=== PATIENT | male | born 1975 | race Caucasian/White ===

== ENCOUNTER 2017-01-15 19:28 | Emergency (ER) | payer SELFPAY ==
[~2017-01-15] VITALS: Ht 188 cm; Wt 86.2 kg
[2017-01-15 19:56] VITALS: BP 155/90
--- NOTE | 2017-01-15 20:25 | PHYS DOC ---
Past Medical History Past Medical History: No Pertinent History Past Surgical History: Other Additional Past Surgical Histo: R hand Alcohol Use: Occasionally Drug Use: Marijuana Adult General Chief Complaint Chief Complaint: LACERATION/AVULSION [facility] HPI Patient is a 41 year old male presents to the emergency department stating he has a laceration underneath his right axilla patient states that he was unloading something out of his truck is unsure when he cut his underarm with. He does state that this was an accident however. He is unsure when his last tetanus immunization occurred. He denies any numbness or tingling down to his lower extremity of his right hand. Peripheral pulses 2+ cap refill brisk less than 2 seconds. No bleeding is currently noted. Laceration appears to be approximately 3 cm in length. Review of Systems Review of Systems Constitutional: Denies fever or chills [] Eyes: Denies change in visual acuity, redness, or eye pain [] HENT: Denies nasal congestion or sore throat [] Respiratory: Denies cough or shortness of breath [] Cardiovascular: No additional information not addressed in HPI [] GI: Denies abdominal pain, nausea, vomiting, bloody stools or diarrhea [] : Denies dysuria or hematuria [] Musculoskeletal: Denies back pain or joint pain [] Integument: Denies rash or skin lesions. Laceration under her right axilla. Neurologic: Denies headache, focal weakness or sensory changes [] Endocrine: Denies polyuria or polydipsia [] Current Medications Current Medications Current Medications Medications (Trade) Dose Ordered Sig/Keya Start Time Stop Time Status Last Admin Dose Admin Diphtheria/ Tetanus/Acell Pertussis (Boostrix) 0.5 ml ONCE ONCE 01/15/17 20:30 01/15/17 20:31 DC 01/15/17 20:50 0.5 ML Lidocaine/Sodium Bicarbonate (Buffered Lidocaine 1%) 20 ml 1X ONCE 01/15/17 20:30 01/15/17 20:31 DC Allergies Allergies Allergies Coded Allergies Type Severity Reaction Last Updated Verified No Known Drug Allergies 01/15/17 No Physical Exam Physical Exam Constitutional: Well developed, well nourished, no acute distress, non-toxic appearance. [] HENT: Normocephalic, atraumatic, bilateral external ears normal, oropharynx moist, no oral exudates, nose normal. [] Eyes: PERRLA, EOMI, conjunctiva normal, no discharge. [] Neck: Normal range of motion, no tenderness, supple, no stridor. [] Cardiovascular:Heart rate regular rhythm Lungs & Thorax: Bilateral breath sounds clear to auscultation [] Skin: Warm, dry, no erythema, no rash. Patient with a laceration approximately 3 cm in length. No drainage or discharge noted from the site. The area does appear to be gaping. Back: No tenderness Extremities: No tenderness, no cyanosis, no clubbing, ROM intact, no edema. [] Neurologic: Alert and oriented X 3, normal motor function, normal sensory function, no focal deficits noted. [] Psychologic: Affect normal, judgement normal, mood normal. [] Current Patient Data Vital Signs Vital Signs Date Time Temp Pulse Resp B/P (MAP) Pulse Ox O2 Delivery O2 Flow Rate FiO2 01/15/17 19:56 98.4 74 18 96 Room Air 98.4 EKG EKG [] Radiology/Procedures Radiology/Procedures [] Course & Med Decision Making Course & Med Decision Making Pertinent Labs and Imaging studies reviewed. (See chart for details) Recommended sutures on the next 7-10 days. Signs symptoms to return back to emergency department as been provided. Patient was provided with signs and symptoms of infection: Redness, warmth, tenderness or any yellow/greenish drainage of a come from the site physician occur follow-up the primary care physician immediately. Patient was also recommended to use Tylenol or ibuprofen for pain and discomfort. Ice packs on 20 minutes off 20 minutes several times a day. Patient agrees with discharge instructions, treatment regimens and follow- up recommendations. Signs and symptoms to return back to emergency department as been provided. All questions and concerns been answered at patient's bedside. [] Dragon Disclaimer Dragon Disclaimer This electronic medical record was generated, in whole or in part, using a voice recognition dictation system. Departure Departure Impression: Primary Impression: Laceration Disposition: 01 HOME, SELF-CARE Condition: STABLE Patient Instructions: Laceration Care, Adult, Sutured Wound Care, [id number] Additional Instructions: Activity as tolerated. Tylenol or ibuprofen for pain and discomfort. Ice packs on 20 minutes off 20 minutes several times a day. Clean the site with soap and water and apply antibiotic ointment twice a day. Watch for signs and symptoms of infection: Redness, warmth, tenderness or any yellow/greenish drainage of a come from the site. Sutures out in the next 7-10 days. Return back to emergency prior signs symptoms of become worse. Follow-up with primary care physician in the next 7-10 days. Scripts Cephalexin (CEPHALEXIN) 500 Mg Tablet 1 TAB PO BID, #20 TAB Prov: TJ PEARSON APRN 01/15/17 Laceration/Wound Repair Laceration/Wound Repair : Wound Location: upper extremity Wound's Depth, Shape: superficial Wound Length (cm): 3 Wound Explored: clean Irrigated w/ Saline (ccs): 40 Betadine Prep?: Yes Anesthesia: 1% Lidocaine Volume Anesthetic (ccs): 6 Wound Debrided: minimal Wound Repaired With: sutures Suture Size/Type: 4:0, nylon Number of Sutures: 8 Progress Site was irrigated with approximately 40 mL of normal saline. 1% buffered lidocaine 8 mL injected into the area. Site was cleaned with Betadine. Sterile drapes was applied no foreign bodies noted in the area. Area was sutured closed with 8 interrupted sutures of 4-0 nylon. Patient tolerated the procedure well. TJ PEARSON APRN Jan 15, 2017 20:25
[2017-01-15] MEDS ORDERED: DIPHTH,PERTUSS(ACELL),TET TOX 0.5 ML DISP.SYRIN. VAX IM ONE (20:30)
[2017-01-15] MEDS ORDERED: LIDOCAINE 1% / SOD BICARB 8.4% 20 ML VIAL. IJ ONE (20:30)
[2017-01-15] MEDS ORDERED: CEPH500T PO (21:02)
== END 2017-01-15 21:45 | disposition home or self-care (01) ==
LOC: ER 19:28
DX: S41.111A Laceration without foreign body of right upper arm, initial encounter (principal); W26.9XXA Contact with unspecified sharp object(s), initial encounter; Y93.89 Activity, other specified; Y92.89 Other specified places as the place of occurrence of the external cause; Y99.8 Other external cause status
CPT/HCPCS: 12002; 90471; 90715; 99283-25

== ENCOUNTER 2021-06-28 18:01 | Emergency (ER) | payer SELFPAY ==
[~2021-06-28] VITALS: Ht 188 cm; Wt 96.7 kg
[2021-06-28 18:01] VITALS: BP 138/78
[~2021-06-28 18:01] MED LIST: CEPH500T PO
[2021-06-28] MEDS ORDERED: FAMO20TA5 PO (18:50)
[2021-06-28] MEDS ORDERED: PRED-220 PO (18:50)
[2021-06-28] MEDS ORDERED: HYDR25TA PO (18:50)
--- NOTE | 2021-06-28 18:51 | PHYS DOC ---
Past Medical History Past Medical History: No Pertinent History Past Surgical History: Other Additional Past Surgical Histo: R hand Smoking Status: Current Every Day Smoker Alcohol Use: Occasionally Drug Use: Marijuana General Adult EDM: Chief Complaint: ITCHING HPI: HPI: Patient is a 46 year old male who presents the ED today with an itchy rash that began 1 week ago after doing yard work. Patient states he has tried Benadryl as well as calamine lotion with no improvement. He said the rash has spread to bilateral upper extremity neck as well as face. Review of Systems: Review of Systems: Constitutional: Denies fever or chills. [] Eyes: Denies change in visual acuity. [] Musculoskeletal: Denies back pain or joint pain. [] Integument: Reports rash Neurologic: Denies headache, focal weakness or sensory changes. [] ] Psychiatric: Denies depression or anxiety. [] Heart Score: C/O Chest Pain: N/A Risk Factors: Risk Factors: DM, Current or recent (<one month) smoker, HTN, HLP, family history of CAD, obesity. Risk Scores: Score 0 - 3: 2.5% MACE over next 6 weeks - Discharge Home Score 4 - 6: 20.3% MACE over next 6 weeks - Admit for Clinical Observation Score 7 - 10: 72.7% MACE over next 6 weeks - Early Invasive Strategies Allergies: Allergies: Allergies Coded Allergies Type Severity Reaction Last Updated Verified No Known Drug Allergies 06/28/21 No Physical Exam: PE: Constitutional: Well developed, well nourished, no acute distress, non-toxic appearance. [] Eyes: PERRLA, EOMI, conjunctiva normal, no discharge. [] Skin: Mild amount of erythematous papular rash on bilateral upper extremities worse on the right forearm, the right forearm skin is dry the patient has applied calamine lotion to the area making it even more dry, similar rash noted on patient's face with trace amount on bilateral lower eyelids, there is no orbital involvement. Back: No tenderness, no CVA tenderness. [] Extremities: No tenderness, no cyanosis, no clubbing, ROM intact, no edema. [] Neurologic: Alert and oriented X 3, normal motor function, normal sensory function, no focal deficits noted. [] Psychologic: Affect normal, judgement normal, mood normal. [] Current Patient Data: Vital Signs: Vital Signs Date Time Temp Pulse Resp B/P (MAP) Pulse Ox O2 Delivery O2 Flow Rate FiO2 06/28/21 18:01 98.3 93 18 138/78 (98) 99 98.3 EKG: EKG: [] Radiology/Procedures: Radiology/Procedures: [] Course & Med Decision Making: Course & Med Decision Making Pertinent Labs and Imaging studies reviewed. (See chart for details) This a 46-year-old male patient presented to the ED today with contact dermatitis rash that began a week ago after doing yard work. Patient's rash is on bilateral upper extremities, neck, face. Discharged on tapered dose of prednisone, hydroxyzine and Pepcid. Follow-up with PCP in 2 weeks. Provided return precautions. Samanthaon Disclaimer: Esau Disclaimer: This electronic medical record was generated, in whole or in part, using a voice recognition dictation system. Departure Departure Impression: Primary Impression: Contact dermatitis Qualified Codes: L24.7 - Irritant contact dermatitis due to plants, except food Disposition: HOME / SELF CARE / HOMELESS Condition: STABLE Referrals: NO PCP (PCP) Follow-up with your doctor in 1 to 2 weeks Patient Instructions: Contact Dermatitis, [id number] Additional Instructions: You were seen for contact dermatitis rash, use the prescribed medications as ordered. Please come back to the ED at any point symptoms worsen. Scripts Hydroxyzine Hcl (HYDROXYZINE HCL) 25 Mg Tablet 1 TAB PO TID, #90 TAB 2 Refills Prov: CELIA BELTRAN LESTER 06/28/21 Famotidine (FAMOTIDINE) 20 Mg Tablet 20 MG PO DAILY, #10 TAB Prov: CELIA BELTRAN LESTER 06/28/21 Prednisone (PREDNISONE ) 10 Mg Tablet 10 MG PO UD for PREDNISONE TAPER, #39 TAB 0 Refills Take 3 tablets by mouth twice a day for 3 days, then take 2 tablets by mouth twice a day for 3 days, then take 1 tablet by mouth twice a day for 3 days, then take 1 tablet by mouth daily x 3 days, then stop. Prov: CELIA BELTRAN LESTER 06/28/21 CELIA BELTRAN LESTER Jun 28, 2021 18:50
== END 2021-06-28 18:57 | disposition home or self-care (01) ==
LOC: ER 18:01
DX: L24.7 Irritant contact dermatitis due to plants, except food (principal); F17.200 Nicotine dependence, unspecified, uncomplicated
CPT/HCPCS: 99283